=== PATIENT | female | born 1950 | race African-American/Black ===

== ENCOUNTER 2016-08-06 19:15 | Observation (INO) | payer MEDICARE, OTHER ==
[~2016-08-06] VITALS: Ht 162.6 cm; Wt 78.0 kg
[2016-08-06] MEDS ORDERED: ASPIRIN 325 MG TAB PO STA (21:32)
[2016-08-06] MEDS ORDERED: SOD CHLORIDE 0.9% 500 ML IV STA (21:32)
[2016-08-06 22:10] LABS: ADD SCAN DIFF NO
[2016-08-06 22:13] LABS: BASOPHILS % 0.3 % (0.0-2.0); EOSINOPHILS # 0.1 10^3/ul (0.0-0.5); EOSINOPHILS % 0.6 % (0.0-7.0); HEMATOCRIT 43.6 % (37.0-47.0); HEMOGLOBIN 14.2 g/dl (12.0-16.0); LYMPHOCYTES # 2.5 10^3/ul (0.8-2.9); LYMPHOCYTES % 25.2 % (15.0-51.0); MEAN CORPUSCULAR HEMOGLOBIN 26.2 pg (29.0-33.0); MEAN CORPUSCULAR HGB CONC 32.6 g/dl (32.0-37.0); MEAN CORPUSCULAR VOLUME 80.4 fl (82.0-101.0); MEAN PLATELET VOLUME 10.8 fl (7.4-10.4); MONOCYTE # 0.6 10^3/ul (0.3-0.9); MONOCYTES % 5.7 % (0.0-11.0); NEUTROPHIL # 6.8 10^3/ul (1.6-7.5); NEUTROPHILS % 67.5 % (39.0-77.0); PLATELET COUNT 268 10^3/UL (140-415); RED BLOOD COUNT 5.42 10^6/ul (4.20-5.40); RED CELL DISTRIBUTION WIDTH 14.6 % (11.5-14.5); WHITE BLOOD COUNT 10.1 10^3/ul (4.8-10.8)
--- NOTE | 2016-08-06 22:19 | RADRPT ---
PROCEDURE: XR Chest. CLINICAL INDICATION: Chest pain. TECHNIQUE: AP Portable chest. COMPARISON: None available FINDINGS: The soft tissues and bones are remarkable for multiple EKG leads superimposed over chest wall. 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 No focal infiltrates , masses, or effusions are noted. The mediastinum and heart are remarkable for moderate cardiomegal y and normal mediastinum. No pneumothorax is present. IMPRESSION: 1. No radiographic evidence for acute cardiopulmonary disease 2. Mild cardiomegaly RPTAT: HDC .Kyleigh Hirsch MD, MD Date Time Electronically viewed and signed by .Kyleigh Hirsch MD, MD on 08/06/2016 22:19 .C/
[2016-08-06 22:33] LABS: INR 0.98
[2016-08-06 22:34] LABS: PARTIAL THROMBOPLASTIN TIME 31.2 Sec (25.0-35.0)
[2016-08-06 22:38] LABS: ALANINE AMINOTRANSFERASE 30 IU/L (13-69); ALBUMIN/GLOBULIN RATIO 1.38; ALKALINE PHOSPHATASE 89 IU/L (42-121); ANION GAP 12 (8-16); ASPARTATE AMINO TRANSFERASE 23 IU/L (15-46); BILIRUBIN,INDIRECT 0.2 mg/dl (0-1.1); BILIRUBIN,TOTAL 0.2 mg/dl (0.2-1.3); BLOOD UREA NITROGEN 13 mg/dl (7-20); CALCIUM 10.1 mg/dl (8.4-10.2); CARBON DIOXIDE 31 mmol/L (21-31); CHLORIDE 99 mmol/L (97-110); CREATININE 0.92 mg/dl (0.44-1.00); GLUCOSE 95 mg/dl (70-220); POTASSIUM 4.2 mmol/L (3.5-5.1); SODIUM 138 mmol/L (135-144); TOTAL PROTEIN 8.6 g/dl (6.1-8.1)
[2016-08-06 22:49] LABS: B-TYPE NATRIURETIC PEPTIDE 57 PG/ML (0-125)
[2016-08-06 22:50] LABS: TROPONIN-I < 0.012 ng/ml (0.00-0.12)
[2016-08-07] VITALS (11 sets, daily range): BP systolic 89–117; BP diastolic 54–72; PULSE 50–78; RESP 16–20; TEMP 98.8; Ht 162.6 cm; Wt 78.0 kg
--- NOTE | 2016-08-07 01:59 | ERA ---
ER Documentation Chief Complaint Date/Time DATE: 08/07/16 TIME: 01:58 Chief Complaint chest pain, chest tightness x 2 days HPI This is a 66-year-old female with complaints of chest pain and chest tightness for 2 days. No fevers no chills. Pain is mild to moderate intensity. No shortness of breath. No other current complaints. Patient has history of cardiac disease in the past. ROS All systems reviewed and are negative except as per history of present illness. Medications Home Meds No Active Prescriptions or Reported Meds Allergies Allergies: Coded Allergies: sulfamethoxazole (Verified Allergy, Unknown, 08/06/16) trimethoprim (Verified Allergy, Unknown, 08/06/16) PMhx/Soc History of Surgery: No Anesthesia Reaction: No Hx Neurological Disorder: No Hx Respiratory Disorders: No Hx Cardiac Disorders: No Hx Psychiatric Problems: Yes (anxiety) Hx Miscellaneous Medical Probl: No Hx Alcohol Use: No Hx Substance Use: No Hx Tobacco Use: Yes Smoking Status: Former smoker Physical Exam Vitals Vital Signs Date Time Temp Pulse Resp B/P Pulse Ox O2 Delivery O2 Flow Rate FiO2 08/07/16 01:07 99.2 74 20 130/73 96 Room Air 08/06/16 22:27 Nasal Cannula 2 08/06/16 22:25 98.4 74 20 134/96 97 Room Air 08/06/16 21:45 Nasal Cannula 2 08/06/16 19:22 98.2 86 20 139/99 95 Physical Exam Const: [] Head: Atraumatic Eyes: Normal Conjunctiva ENT: Normal External Ears, Nose and Mouth. Neck: Full range of motion..~ No meningismus. Resp: Clear to auscultation bilaterally Cardio: Regular rate and rhythm, no murmurs Abd: Soft, non tender, non distended. Normal bowel sounds Skin: No petechiae or rashes Back: No midline or flank tenderness Ext: No cyanosis, or edema Neur: Awake and alert Psych: Normal Mood and Affect Result Diagram: 08/06/16214408/06/162144 Results 24 hrs Laboratory Tests Test 08/06/16 21:45 White Blood Count 10.110^3/ul Red Blood Count 5.4210^6/ul Hemoglobin 14.2g/dl Hematocrit 43.6% Mean Corpuscular Volume 80.4fl Mean Corpuscular Hemoglobin 26.2pg Mean Corpuscular Hemoglobin Concent 32.6g/dl Red Cell Distribution Width 14.6% Platelet Count 42418^3/UL Mean Platelet Volume 10.8fl Neutrophils % 67.5% Lymphocytes % 25.2% Monocytes % 5.7% Eosinophils % 0.6% Basophils % 0.3% Nucleated Red Blood Cells % 0.0/100WBC Neutrophils # 6.810^3/ul Lymphocytes # 2.510^3/ul Monocytes # 0.610^3/ul Eosinophils # 0.110^3/ul Basophils # 0.010^3/ul Nucleated Red Blood Cells # 0.010^3/ul Prothrombin Time 13.0Sec Prothrombin Time Ratio 1.0 INR International Normalized Ratio 0.98 Activated Partial Thromboplast Time 31.2Sec Sodium Level 138mmol/L Potassium Level 4.2mmol/L Chloride Level 99mmol/L Carbon Dioxide Level 31mmol/L Anion Gap 12 Blood Urea Nitrogen 13mg/dl Creatinine 0.92mg/dl Glucose Level 95mg/dl Calcium Level 10.1mg/dl Total Bilirubin 0.2mg/dl Direct Bilirubin 0.00mg/dl Indirect Bilirubin 0.2mg/dl Aspartate Amino Transf (AST/SGOT) 23IU/L Alanine Aminotransferase (ALT/SGPT) 30IU/L Alkaline Phosphatase 89IU/L Troponin I < 0.012ng/ml B-Type Natriuretic Peptide 57PG/ML Total Protein 8.6g/dl Albumin 5.0g/dl Globulin 3.60g/dl Albumin/Globulin Ratio 1.38 Current Medications Medications (Trade) Dose Ordered Sig/Shelly Route PRN Reason Start Time Stop Time Status Last Admin Dose Admin Sodium Chloride (NS) 500 ml @ 500 mls/hr Q1H STAT IV 08/06/16 21:32 08/06/16 22:31 DC 08/06/16 22:20 Aspirin (Aspirin) 325 mg ONCE STAT PO 08/06/16 21:32 08/06/16 21:33 DC 08/06/16 22:19 Procedures/MDM EKG: Rate/Rhythm: Normal Sinus Rhythm QRS, ST, T-waves: No changes consistent w/ acute ischemia Impression: No evidence of ischemia or arrhythmia Chest X-ray 1V Interpreted by me: Soft Tissue: No acute abnormalities Bones: No acute abnormalities Mediastinum/Cardiac Silhouette/Lungs: No acute abnormalities Patient's symptoms are concerning for cardiac cause will require inpatient workup and continuous monitoring. Further w/u for ischemia, arrhythmia, PE or dissection will be deferred to the inpatient team. Accepting Care Team: Current data and ongoing care discussed. Time: 2 AM Primary Provider: Dusty Consulting: [LEENA] Outstanding Data: none Departure Diagnosis: Primary Impression: Chest pain Qualified Code: I20.0 - Unstable angina pectoris Condition: Serious SIERRA MAHAN Aug 07, 2016 01:59
[2016-08-07] MEDS: SOD CHLORIDE 0.9% 1,000 ML IV SCH ×2 (02:49→17:01)
[2016-08-07] MEDS ORDERED: NACL 0.9% 3 ML SYG IV SCH (03:00)
[2016-08-07] MEDS ORDERED: ACETAMINOPHEN 325 MG TAB PO PRN (03:00)
--- NOTE | 2016-08-07 05:20 | HP ---
Date/Time of Note Date/Time of Note DATE: 08/07/16 TIME: 04:51 Assessment/Plan VTE Prophylaxis VTE Prophylaxis Intervention: LMWH Lines/Catheters IV Catheter Type (from [facility]): Saline Lock Assessment/Plan Chief Complaint/Hosp Course This is a 66-year-old female being admitted to the telemetry floor for #1 chest pain: Rule out ACS versus stress versus upper respiratory infection. cardiac enzymes negative 1 will trend cardiac enzymes. Order 2D echocardiogram. EKG is sinus rhythm with no ST or T-wave abnormalities noted. Patient has been dealing with stress at home and is also had a upper respiratory sickness which also could be contributing to possible chest wall pain though patient does not have any palpable tenderness. #2 upper respiratory infection: Possible sinusitis with right maxillary sinus tenderness. As the patient has been dealing with this for more than 1 week and her symptoms were getting better and then got worse again will let the current time treat patient with Levaquin 750mg 5 days. #3 DVT and GI prophylaxis: Lovenox, Protonix. Problems: HPI/ROS Admit Date/Time Admit Date/Time Hx of Present Illness Chief complaint: Chest tightness 3 days This is a 66-year-old female who comes in today to the ER with complaints of chest tightness 3 days. Patient states that a few times throughout the last few days she has experienced right-sided chest tightness. She denies any shortness of breath with the episodes or any diaphoresis. Denies any radiation of the tightness. She does state that she has been coughing for the last week and a half or so which is productive of white sputum. She has had sick contacts including her granddaughter. She did feel like she was getting better and then all of a sudden got worse again with her upper respiratory infection. She denies any fevers. She does state she had time as facial pressure. Of note patient also states that she has been stressed out lately she has been taking care of her granddaughter in a daily basis and running around and has not really been able to take some time off and go enjoy herself outside. Allergies: Bactrim Medications: None ROS Const: As per HPI Eyes : No pain discharge or redness or change in visual acuity ENT: As per HPI Respiratory: As per HPI Cardiovascular: As per HPI GI : no change in appetite, abdominal pain, nausea, vomiting, diarrhea, constipation, or change in the color his stool Genitourinary: No dysuria, hematuria, flank pain , discharge or CVA tenderness Musculoskeletal: No joint pain, back pain, neck pain, restricted range of motion in neck or joints Skin: No rash, bruising or hives Neuro: No headache, dizziness, syncope, seizure, focal weakness Endocrine: No polyuria, polydipsia, temperature intolerance Psych: As per HPI PMH/Family/Social Past Medical History Medical History: no pertinent history Past Surgical History Family History Significant Family History: hypertension (Mom) Social History Smoking Status: Former smoker (Half pack per day 5 years, quit 1 week ago) Exam/Review of Systems Vital Signs Vitals Vital Signs Date Time Temp Pulse Resp B/P Pulse Ox O2 Delivery O2 Flow Rate FiO2 08/07/16 04:07 98.8 78 18 125/75 99 Room Air 08/06/16 22:27 2 Exam Exam General: Patient is well-developed well-nourished The patient is alert oriented -3 lying comfortably in bed. HEENT: Atraumatic, normocephalic. The pupils are equal, round and reactive. Extraocular motor are intact. Mild maxillary sinus tenderness to palpation right side Neck: Supple with full range of motion. No rigidity or meningismus Chest: Nontender Lungs: Clear to auscultation bilaterally no crackles rales or wheezing Heart: Normal S1-S2, Regular rhythm and rate. No appreciable murmur Abdomen: Soft , nontender, nondistended , bowel sounds are present. No guarding no rebound tenderness , No masses or organomegaly. No costovertebral temporal angle mass Extremities: Normal to inspection, no edema no cyanosis Neurologic: Normal mental status, speech normal, cranial nerves II through XII are intact, motor and sensory are intact, no focal weakness Additional Comments EKG: Rate/Rhythm: Normal Sinus Rhythm QRS, ST, T-waves: No changes consistent w/ acute ischemia As per ED physician documentation PROCEDURE: XR Chest. CLINICAL INDICATION: Chest pain. TECHNIQUE: AP Portable chest. COMPARISON: None available FINDINGS: The soft tissues and bones are remarkable for multiple EKG leads superimposed over chest wall. Thoracic spondylosis is present with bilateral acromioclavicular osteoarthropathy. No focal infiltrates, masses, or effusions are noted. The mediastinum and heart are remarkable for moderate cardiomegaly and normal mediastinum. No pneumothorax is present. IMPRESSION: 1. No radiographic evidence for acute cardiopulmonary disease 2. Mild cardiomegaly RPTAT: HDC .Kyleigh Hirsch MD, Date Time Electronically viewed and signed by .Kyleigh Hirsch MD, on 08/06/2016 22: 19 Labs Result Diagram: 08/06/16214408/06/162144 Medications Medications Current Medications Sodium Chloride (NS) 1,000 ml @ 70 mls/hr [id number] IV ; Start 08/07/16 at 02:49 Acetaminophen (Tylenol Tab) 650 mg Q6H PRN PO PAIN LEVEL 1-3 OR FEVER; Start at 03:00 Pantoprazole (Protonix Tab) 40 mg DAILY@06 PO ; Start 08/07/16 at 06:00 Enoxaparin Sodium (Lovenox) 40 mg DAILY SC ; Start 08/07/16 at 09:00 BOB BALDERRAMA Aug 07, 2016 05:11
[2016-08-07] MEDS ORDERED: LEVOFLOXACIN 750 MG TABLET PO SCH (06:00)
[2016-08-07] MEDS: PANTOPRAZOLE (EC) 40 MG TAB PO SCH (06:32)
[2016-08-07 08:15] LABS: ADD SCAN DIFF NO
[2016-08-07 08:23] LABS: BASOPHILS % 0.4 % (0.0-2.0); EOSINOPHILS # 0.1 10^3/ul (0.0-0.5); EOSINOPHILS % 0.9 % (0.0-7.0); HEMATOCRIT 35.6 % (37.0-47.0); HEMOGLOBIN 12.1 g/dl (12.0-16.0); LYMPHOCYTES # 2.5 10^3/ul (0.8-2.9); LYMPHOCYTES % 36.8 % (15.0-51.0); MEAN CORPUSCULAR HEMOGLOBIN 27.1 pg (29.0-33.0); MEAN CORPUSCULAR VOLUME 79.8 fl (82.0-101.0); MEAN PLATELET VOLUME 10.5 fl (7.4-10.4); MONOCYTE # 0.6 10^3/ul (0.3-0.9); MONOCYTES % 8.3 % (0.0-11.0); NEUTROPHIL # 3.6 10^3/ul (1.6-7.5); NEUTROPHILS % 52.9 % (39.0-77.0); PLATELET COUNT 243 10^3/UL (140-415); RED BLOOD COUNT 4.46 10^6/ul (4.20-5.40); RED CELL DISTRIBUTION WIDTH 14.4 % (11.5-14.5); WHITE BLOOD COUNT 6.8 10^3/ul (4.8-10.8)
[2016-08-07] MEDS: ENOXAPARIN 40 MG/0.4 ML SYG SC SCH (08:31)
[2016-08-07 08:55] LABS: CK-MB 0.24 ng/ml (0.0-2.4)
[2016-08-07 08:58] LABS: TROPONIN-I < 0.012 ng/ml (0.00-0.12)
[2016-08-07 08:59] LABS: ALBUMIN 3.9 g/dl (3.3-4.9); ALBUMIN/GLOBULIN RATIO 1.34; BILIRUBIN,INDIRECT 0.1 mg/dl (0-1.1); BILIRUBIN,TOTAL 0.1 mg/dl (0.2-1.3); CALCIUM 9.6 mg/dl (8.4-10.2); CREATININE 0.85 mg/dl (0.44-1.00); POTASSIUM 4.2 mmol/L (3.5-5.1); TOTAL PROTEIN 6.8 g/dl (6.1-8.1)
[2016-08-07 09:04] LABS: CREATINE KINASE 56 IU/L (23-200)
[2016-08-07 09:47] LABS: ALBUMIN 4.1 g/dl (3.3-4.9); BILIRUBIN,INDIRECT 0.1 mg/dl (0-1.1); BILIRUBIN,TOTAL 0.1 mg/dl (0.2-1.3); TOTAL PROTEIN 6.7 g/dl (6.1-8.1)
[2016-08-07 09:48] LABS: CHOL/HDL RATIO 3.2 RATIO
[2016-08-07] MEDS ORDERED: ALBUTEROL/IPRATROPIUM (NEB) 3 ML AMP HHN PRN (12:30)
[2016-08-07] MEDS: ALBUTEROL/IPRATROPIUM (NEB) 3 ML AMP HHN SCH ×3 (12:30→21:55)
[2016-08-07 14:33] LABS: CREATINE KINASE 65 IU/L (23-200)
[2016-08-07 14:57] LABS: CK-MB < 0.22 ng/ml (0.0-2.4); TROPONIN-I < 0.012 ng/ml (0.00-0.12)
--- NOTE | 2016-08-07 19:54 | RADRPT ---
Echocardiogram Report Patient Name: VAL SPENCER Gender: Female Date: 1950 Study Date: 07-Aug-2016 Faucets Assembler: Alexey Harman [facility] Location: [id number] Ref. Physician: BOB BALDERRAMA Quality: Good Procedures: Transthoracic echocardiogram with complete 2D, M-Mode, and doppler examination. Indications: Chest Pain. 2D/M Mode Doppler Measurement Value Normal Ranges Measurement Value Normal Ranges LVIDd 2D 4.3 3.5 - 5.6 cm AV Peak Miller 1.3 m/sec LVIDs 2D 2.9 2.1 - 4.1 cm AV Peak PG 6.9 mmHg LVPWd 2D 1.2 0.6 - 1.1 cm LVOT Peak Miller 0.9 m/sec IVSd 2D 1.2 0.6 - 1.1 cm LVOT Peak PG 3.4 mmHg AoR Diam 2D 3.2 2.0 - 3.7 cm MV E Peak Miller 0.7 m/sec EDV 2D 81.1 cm3 MV A Peak Miller 0.7 m/sec ESV 2D 23.8 cm3 MV E/A 1.1 LA Dimen 2D 2.8 2.3 - 4.0 cm MV Decel Time 283 msec MV Decel Ventura 3 MV E/A 1.1 TR Peak Miller 2.3 m/sec TR Peak PG 21.9 mmHg RVSP 25.0 mmHg Findings Left Ventricle: Normal left ventricular systolic function. Normal left ventricular cavity size. Mild enlargement of left ventricle cavity. Ejection fraction is visually estimated at 60 %. Tissue Doppler/Mitral Doppler indices are consistent with impaired relaxation (Stage I diastolic dysfunction). Right Ventricle: Normal right ventricular size. Normal right ventricular systolic function. Left Atrium: The left atrium is normal in size. Right Atrium: The right atrium is normal in size. Mitral Valve: Normal appearance and function of the mitral valve with trace physiologic regurgitation. Aortic Valve: Normal appearance of the aortic valve. No significant aortic stenosis or insufficiency. Tricuspid Valve: Normal appearance of the tricuspid valve. Estimated peak PA systolic pressure 25 mmHg. There is trace tricuspid regurgitation. Pulmonic Valve: Normal pulmonic valve appearance. Pericardium: Normal pericardium with no significant pericardial effusion. Aorta: Normal aortic root. IVC: Normal size and normal respiratory collapse consistent with normal right atrial pressure. Conclusions 1.Normal left ventricular systolic function. Normal left ventricular cavity size. Mild enlargement of left ventricle cavity. Ejection fraction is visually estimated at 60 %. Tissue Doppler/Mitral Doppler indices are consistent with impaired relaxation (Stage I diastolic dysfunction). 2.Normal appearance and function of the mitral valve with trace physiologic regurgitation. 3.Normal appearance of the tricuspid valve. Estimated peak PA systolic pressure 25 mmHg. There is trace tricuspid regurgitation. Electronically Signed By: Brent Najera 07-Aug-2016 19:54:00 -0700 Patient Name: VAL SPENCER Study Date: 07-Aug-2016 [id number]
[2016-08-07] MEDS: LACTOBACILLUS RHAMNOSUS CAP PO SCH (20:39)
[2016-08-08] VITALS (10 sets, daily range): BP systolic 95–129; BP diastolic 51–79; PULSE 57–78; RESP 16–19
[2016-08-08] MEDS: ALBUTEROL/IPRATROPIUM (NEB) 3 ML AMP HHN SCH ×4 (02:00→15:13)
[2016-08-08] MEDS ORDERED: LEVOFLOXACIN 750MG/D5W (PMX) 150 ML IVPB SCH (06:00)
[2016-08-08] MEDS: PANTOPRAZOLE (EC) 40 MG TAB PO SCH (06:01)
[2016-08-08] MEDS: ENOXAPARIN 40 MG/0.4 ML SYG SC SCH (09:01)
[2016-08-08] MEDS: SOD CHLORIDE 0.9% 1,000 ML IV SCH (09:01)
[2016-08-08] MEDS: LACTOBACILLUS RHAMNOSUS CAP PO SCH (09:02)
[2016-08-08] MEDS ORDERED: ASPI-535 PO (10:55)
[2016-08-08] MEDS ORDERED: AMOX1TAB10 PO (10:55)
[2016-08-08] MEDS ORDERED: LACT1CAP57 PO (10:55)
--- NOTE | 2016-08-08 10:56 | PDOCDIS ---
Discharge Instructions DIAGNOSIS Discharge Diagnosis Chest pain Sinusitis CONDITION Patient Condition: Stable HOME CARE INSTRUCTIONS: Diet Instructions: Low Fat /Cholesterol ACTIVITY: Activity Restrictions: Slowly Increase Activity Rest between Activity FOLLOW UP/APPOINTMENTS Follow-up Plan Followup with your primary doctor within the next 1-2 weeks. If you don't have one please let someone know, we can give you resources that may help you pick one. You may call Dr Manuel Chaidez's office. he's accepting new patients Name, Degree: Manuel Chaidez MD Specialty: Internal Medicine Comments: Office Address: [address] [place] [address] [place], [place] [id number] Office Office You may also call your insurance company to assign one to you. Review your medication list with your nurse before leaving and if you need new prescriptions please let your nurse know. I may have made changes to your home medications or given you new prescriptions , please let your primary doctor know as well. Stay compliant with your medications and report any side effects to your PCP or pharmacist. Return to the ER if you have any concerns and cannot reach your doctors or call your insurance company, they usually have a nurse that can help you. SINAI GAMEZ Aug 08, 2016 10:55
[2016-08-08] MEDS ORDERED: ALBU90AE INHALATION (14:58)
--- NOTE | 2016-08-08 15:00 | DS ---
Date/Time of Note Date/Time of Note DATE: 08/08/16 TIME: 14:59 Discharge Summary Admission/Discharge Info Admit Date/Time Aug 07, 2016 at 01:54 Discharge Date/Time August 08, 2016 Discharge Diagnosis Chest pain Sinusitis Patient Condition: Stable Hx of Present Illness Chief complaint: Chest tightness 3 days This is a 66-year-old female who comes in today to the ER with complaints of chest tightness 3 days. Patient states that a few times throughout the last few days she has experienced right-sided chest tightness. She denies any shortness of breath with the episodes or any diaphoresis. Denies any radiation of the tightness. She does state that she has been coughing for the last week and a half or so which is productive of white sputum. She has had sick contacts including her granddaughter. She did feel like she was getting better and then all of a sudden got worse again with her upper respiratory infection. She denies any fevers. She does state she had time as facial pressure. Of note patient also states that she has been stressed out lately she has been taking care of her granddaughter in a daily basis and running around and has not really been able to take some time off and go enjoy herself outside. Allergies: Bactrim Medications: None . Hospital Course 66-year-old female who was admitted for chest tightness, was ruled out for an acute coronary syndrome with 3 negative cardiac enzymes. High echocardiogram also came back normal. Of note is that her pain was on the right side and the patient did report that she had been lifting and caring for her grandchildren and as such her pain was thought to be musculoskeletal in origin. She has also reported to the admitting physician that she did have some upper respiratory symptoms and she was being treated with oral antibiotics. At this time she continues to do well, she is stable for outpatient follow-up . She has been given information for Dr. Chaidez for outpatient primary care follow-up if she so desires or she may call her insurance company to assign her own physician to her. Home Meds Active Scripts Albuterol Sulfate (Proair Respiclick) 90 Mcg Aer.pow.ba, 2 PUFFS INHALATION Q4H WHILE AWAKE Y for SHORTNESS OF BREATH, #1 BOTTLE 1 Refill Prov:SINAI GAMEZ 08/08/16 Aspirin Ec (Aspir 81) 81 Mg Tablet.dr, 81 MG PO DAILY, #30 TAB 3 Refills Prov:SINAI GAMEZ 08/08/16 Amoxicillin/Potassium Clav (Amox-Clav 875-125 mg Tablet) 875-125 mg Tab, 1 TAB PO BID, #20 TAB Prov:SINAI GAMEZ 08/08/16 Lactobacillus Rhamnosus* (Culturelle*) 1 Each Cap.sprink, 1 CAP PO BID for 10 Days, CAP Prov:SINAI GAMEZ 08/08/16 Follow-up Plan See hospital course . Primary Care Provider Care Physician No Primary Time spent on discharge: > 30 minutes SINAI GAMEZ Aug 08, 2016 14:59
== END 2016-08-08 17:55 | disposition home or self-care (01) ==
LOC: E/R 19:15 → MS4 08-07 01:54
PROVIDERS: ADMIT Family Medicine; ATTEND Family Medicine
DX: R07.9 Chest pain, unspecified (principal); J32.9 Chronic sinusitis, unspecified; J06.9 Acute upper respiratory infection, unspecified; I82.409 Acute embolism and thrombosis of unspecified deep veins of unspecified lower extremity
CPT/HCPCS: 36415; 71010; 80053; 80061; 80076; 82550; 82553; 83036; 83735; 83880; 84443; 84484; 85025; 85610; 85730; 93005; 93306; 94640; 94664; 96372; 96374; 99285; G0378; J1650; J1956; J7030; J7040; 99217